=== PATIENT | male | born 1930 | race Caucasian/White ===

== ENCOUNTER 2019-05-16 14:05 | Emergency (ER) | payer MEDICARE, BC ==
--- OUTSIDE RECORDS SUMMARY | 2019-05-16 14:13 | XMS REPORT | Continuity of Care Document ---
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 [phone] Problems Active Problems Provider Date Aortic valve disorder Tyrone Knox M.D., Onset: 05/06/2019 [facility] Preoperative cardiovascular Tyrone Knox M.D., Onset: 05/06/2019 examination [facility] Social History Type Date Description Comments Sex Unknown Tobacco Use Start: Unknown Never Smoked Cigarettes Smoking Status Reviewed: 05/06/19 Never Smoked Cigarettes ETOH Use Currently consumes alcohol ETOH Use Occasionally consumes alcohol Allergies, Adverse Reactions, Alerts Description No Known Drug Allergies Medications Active Medications SIG Qnty Indications Ordering Provider Date Simvastatin 1 po daily [place], 20mg Tablets Kim, 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 Atenolol take 1 tablet by Unknown 25mg Tablets mouth once daily Fluticasone Propionate [place] Twice Ien Unknown Once D 50mcg/Act Suspension Immunizations Description No Information Available Vital Signs Date Vital Result Comment 05/06/2019 11:01am BP Systolic Sitting Left Arm 110 mmHg BP Diastolic Sitting Left Arm 62 mmHg Heart Rate 59 /min Respiratory Rate 16 /min Height 64 inches 5'4" Weight 173.00 lb BMI (Body Mass Index) 29.7 kg/m2 BSA (Body Surface Area) 1.84 m2 [place] body weight in kilograms 59 kg O2 Saturation Level with Exercise 95 % Results Description No Information Available Procedures Date Code Description Status 05/06/2019 90946 EKG-Tracing And Report Completed 04/23/2019 40892 Echocardiogram Complete Completed Medical Devices Description No Information Available Encounters Type Date Location Provider Dx Diagnosis Office Visit 05/06/2019 Cardiology Office [facility] Z01.810 Encounter for 11:00a Tyrone Brooks M.D., preprocedural [facility] cardiovascular examination 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 Assessments Date Code Description Provider 05/06/2019 Z01.810 Encounter for preprocedural Tyrone Knox M.D., cardiovascular examination [facility] 05/06/2019 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 Tyrone Knox M.D., [facility] 04/23/2019 R01.0 Benign and innocent cardiac murmurs Andrew Mercer MD Plan of Treatment Future Appointment(s):11/12/2019 1:40 pm - Tyrone Knox M.D., [facility] at Cardiology Zhgwci5505/06/2019 - Tyrone Knox M.D., FACCZ01.810 Encounter for preprocedural cardiovascular examinationComments:The patient is cleared for surgery without further study.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New Orders:Echocardiogram, Transesophageal, Ordered: 05/06/19Comments:He has severe calcification of the aortic valve with mild to moderate stenosis based on the Doppler information. He does not have symptoms from this issue. Will follow with a GISEL in 6 months.AllFollow up:Follow up visit in 6 months. Functional Status Functional Condition Comment Date Status Glasses Active Independent with all ADL's Active Mental Status Description No Information Available Referrals Description No Information Available
--- OUTSIDE RECORDS SUMMARY | 2019-05-16 14:13 | XMS REPORT | Continuity of Care Document ---
:1930 External Reference #:[id number] Author Name Melissa Dey M.D. (transmitted by agent of provider Keya Bennett) Address [address] [place] [address] [place] [address] Care Team Providers Name Role Phone Homer Dyer MD - Family Medicine Care Team Information Evaluation Analyst Problems Active Problems Provider Date Localized, primary osteoarthritis Melissa Dey M.D. Onset: 03/29/2019 Social History Type Date Description Comments Sex Unknown Tobacco Use Start: Unknown End: Former Cigarette Smoker 1 Unknown Pack Daily Cigarette Use Pack Years - 37 Smoking Status Reviewed: 03/29/19 Former Cigarette Smoker 1 Pack Daily ETOH Use Occasionally consumes alcohol Tobacco Use Start: Unknown End: Patient is a former smoker Unknown Recreational Drug Use Denies Drug Use Exercise Type/Frequency Does not exercise Allergies, Adverse Reactions, Alerts Active Allergies Reaction Severity Comments Date Sulfa Antibiotics 07/03/2018 Medications Active Medications SIG Qnty Indications Ordering Provider Date Simvastatin take 1 tablet by Unknown 20mg Tablets mouth at bedtime Atenolol 1 tab po daily Talia Frederick 25mg Tablets PEDRO Jenkins Medications Administered in Office Medication SIG Qnty Indications Ordering Provider Date Celestone 3 mg and 3mg Tiburcio Conner MD 07/03/2018 Injection Immunizations Description No Information Available Vital Signs Date Vital Result Comment 03/29/2019 10:45am Height 66 inches 5'6" Weight 174.00 lb Heart Rate 100 /min BP Systolic 122 mmHg BP Diastolic 90 mmHg Respiratory Rate 16 /min Pain Level 8 BMI (Body Mass Index) 28.1 kg/m2 07/03/2018 1:03pm Height 66 inches 5'6" Weight 200.00 lb Heart Rate 66 /min BP Systolic Sitting 110 mmHg BP Diastolic Sitting 62 mmHg Respiratory Rate 12 /min Pain Level 0 BMI (Body Mass Index) 32.3 kg/m2 Results Description No Information Available Procedures Description No Information Available Medical Devices Description No Information Available Encounters Type Date Location Provider Dx Diagnosis Office Visit 03/29/2019 [facility] Melissa Dey, M25.561 [facility] Pain in left knee M25.462 Effusion, left knee M25.461 Effusion, right knee M17.11 Unilateral primary osteoarthritis, right knee Assessments Date Code Description Provider 03/29/2019 M25.561 Pain in right knee Melissa Dey M.D. 03/29/2019 M25.562 Pain in left knee Melissa Dey M.D. 03/29/2019 M25.462 Effusion, left knee Melissa Dey M.D. 03/29/2019 M25.461 Effusion, right knee Melissa Dey M.D. 03/29/2019 M17.11 Unilateral primary osteoarthritis, right knee Melissa Dey M.D. Plan of Treatment Future Appointment(s):06/11/2019 1:30 pm - Melissa Dey M.D. at [facility] at Qzxnbx2406/25/2019 8:30 am - Melissa Dey M.D. at [facility] at Vuoibv4803/29/2019 - Melissa Dey M.D.M25.561 Pain in right kneeM25.562 Pain in left kneeM25.462 Effusion, left kneeM25.461 Effusion, right kneeM17.11 Unilateral primary osteoarthritis, right knee Functional Status Description No Information Available Mental Status Description No Information Available Referrals Description No Information Available
[2019-05-16 14:22] VITALS: BP 101/51
--- NOTE | 2019-05-16 14:26 | UC ---
General HPI - HPI Summary HPI Summary: 1 wk ago pt. tripped while holding a cat in a cage. He fell onto His R ribs. 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 Pain with movement, coughing, sneezing, etc. - History of Current Complaint Chief Complaint: UCChestPain Stated Complaint: RT SIDE PAIN Time Seen by Provider: 05/16/19 14:12 Hx Obtained From: Patient - Allergy/Home Medications Allergies/Adverse Reactions: Allergies Allergy/AdvReac Type Severity Reaction Status Date / Time No Known Allergies Allergy Verified 05/16/19 14:22 Home Medications: Home Medications Aspirin 81 mg CHEW TAB* [Aspirin Low Dose TAB*] 81 mg PO DAILY 05/16/19 [ History Confirmed 05/16/19] Atenolol TAB* [Tenormin TAB* 25 MG] 25 mg PO DAILY 05/16/19 [History Confirmed 05/16/19] Simvastatin TAB(NF) [Zocor(NF)] 10 mg PO DAILY 05/16/19 [History Confirmed 05/16] PMH/Surg Hx/FS Hx/Imm Hx Previously Healthy: Yes Cardiovascular History: Cardiac Disease, Hypertension - Family History Known Family History: Positive: Non-Contributory - Social History Lives: With Family - Review of Systems All Other Systems Reviewed And Are Negative: Yes Constitutional: Negative: Fever, Chills, Fatigue Skin: Negative: Bruising Cardiovascular: Positive: Other - +r rib pain Musculoskeletal: Positive: Arthralgia, Decreased ROM Neurological: Negative: Weakness, Paresthesia Physical Exam Triage Information Reviewed: Yes Appearance: Well-Appearing Vital Signs Reviewed: Yes Respiratory: Positive: Lungs clear, Normal breath sounds Cardiovascular: Positive: Other: - R rib tenderness, no bruising noted. Neurological: Positive: Alert Diagnostics - Radiology No standard instances Radiology Interpretation Completed By: Radiologist Summary of Radiographic Findings: IMPRESSION: NONDISPLACED NINTH RIB FRACTURE. NO APPRECIABLE PNEUMOTHORAX. Course/Dx - Course Course Of Treatment: R rib pain after a fall/trip. XRAY showed non displaced fx on R lower side. Discuss immobility and nsaid use. No opiates rx'd due to risk of falls in this age group. Disc using spirometry so to facilitate breathing. Disc healing process. - Differential Dx - Multi-Symptom Differential Diagnoses: Other - Diagnoses Provider Diagnosis: Rib fracture Discharge ED - Sign-Out/Discharge Documenting (check all that apply): Patient Departure All imaging exams completed and their final reports reviewed: Yes - Discharge Plan Condition: Good Disposition: HOME Prescriptions: Ibuprofen [Ibu] 600 mg PO TID PRN #90 tablet PRN Reason: Pain - Moderate Spirometers and Accessories [Mistassist] 1 each MC Q6HR #1 each Patient Education Materials: Rib Fracture (ED) Referrals: Homer Dyer MD [Primary Care Provider] - Additional Instructions: Please use spirometry. - Billing Disposition and Condition Condition: GOOD Disposition: Home
== END 2019-05-16 15:15 | disposition home or self-care (01) ==
LOC: UCCORT 14:05
DX: S22.31XA Fracture of one rib, right side, initial encounter for closed fracture (principal); I10 Essential (primary) hypertension; Z79.82 Long term (current) use of aspirin; W01.0XXA Fall on same level from slipping, tripping and stumbling without subsequent striking against object, initial encounter; Y92.9 Unspecified place or not applicable
CPT/HCPCS: 99212; G0463